=== PATIENT | female | born 1995 | race Caucasian/White ===

== ENCOUNTER 2020-11-09 04:32 | Inpatient (IN) ==
[2020-11-09] MEDS: RINGER'S SOLUTION,LACTATED 1,000 ML IV PRN ×2 (05:08→06:11)
[2020-11-09] MEDS ORDERED: ceFAZolin SODIUM 1 GM VIAL ONE (06:42)
--- NOTE | 2020-11-09 06:47 | ANES ---
Anesthesia Pre Procedure Eval HOME MEDICATIONS albuterol sulfate 90 mcg/actuation aerosol inhaler 2 inh IH Q6H PRN 06/26/20 [Last Taken Unknown] ipratropium 0.5 mg-albuterol 3 mg (2.5 mg base)/3 mL nebulization soln 3 ml IH Q6H PRN 06/26/20 [Last Taken Unknown] montelukast 10 mg tablet 10 mg PO DAILY 06/26/20 [Last Taken Unknown] [id number] 27 mg-folic acid 800 mcg-dha 200 mg-lut.oral pack 1 pkg PO ea 06/26/20 [Last Taken Unknown] aspirin 81 mg tablet,delayed release 81 mg PO DAILY 07/09/20 [Last Taken Unknown] Allergies/Adverse Reactions: Allergies Allergy/AdvReac Type Severity Reaction Status Date / Time No Known Allergies Allergy Verified 11/09/20 04:42 - Planned Procedure Planned Procedure: Repeat Section Medication List Reviewed:: Yes Allergies Verified: Yes Medical History (Last Reviewed 11/09/20 @ 06:46 by Brendan Damian CRNA) History of marijuana use (Chronic) Body mass index 36.0-36.9, adult (Chronic) Tobacco abuse (Chronic) 1/2 ppd Hx of migraines (Chronic) Depression (Chronic) Anxiety (Chronic) Influenza vaccination up to date Onset Date: ~09/03/20 09/03/20 snma Mid cycle pain Onset Date: ~05/2014 Migraine Pain in joint involving both pelvic regions and thighs Onset Date: ~03/2016 Acid reflux Onset Date: Unknown Asthma uses rescue inhaler often during the winter time. No hospitalizations due to asthma. 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 Onset Date: 2016 colposcopy w/ no bx LGSIL (low grade squamous intraepithelial dysplasia) Onset Date: ~08/08/17 Abnormal uterine bleeding Onset Date: ~05/2014 Surgical History (Last Reviewed 11/09/20 @ 06:46 by Brendan Damian CRNA) Previous section (Chronic) Previous section Onset Date: 03/22/18 History of colposcopy Onset Date: 2016 no bx d/t Family History (Last Reviewed 11/09/20 @ 06:46 by Brendan Damian CRNA) Mother CVA (cerebral vascular accident) COPD (chronic obstructive pulmonary disease) Father Alive and well Sister Asthma - Family Anesthesia History Family History:: no untoward family reactions to anesthesia, no familial bleeding tendencies, no family history of clotting disorders, no family history of premature - Airway/Neck/Teeth Within Normal Limits:: Yes Teeth Condition: intact Neck Exam: full range of motion Mallampatti Score: 2 Thyromental (T-M) distance: > 6 cm Mandibulo Hyoid distance: > 3 cm - Respiratory Respiratory History: asthma Respiratory Physical: lungs clear Smoking Status: Current every day smoker Sleep Apnea currently treated: No Sleep Apnea by current assessment: No - Cardiovascular Tolerate Activity: Fair Heart Sounds: S1 & S2, Regular - Gastrointestinal NPO since: 2400 - Anesthesia Assessment and Plan ASA Class: PS, II, E Anesthesia Type Plan: Block - Bilateral TAP block for post op pain relief, Spinal
[2020-11-09] MEDS ORDERED: BUPIVACAINE HCL/EPINEPHRINE 50 ML VIAL IJ ONE (06:48)
[2020-11-09 06:52] LABS: Cocaine Ur Negative (NEGATIVE); Urine Barbiturate Negative (NEGATIVE); Urine Benzodiazepines Negative (NEGATIVE); Urine Opiates Negative (NEGATIVE); Urine PCP Negative (NEGATIVE); Urine THC Negative (NEGATIVE)
[2020-11-09] MEDS ORDERED: Oxytocin/Ringers Lactate 20 UNITS/1,000 ML BAG IV ONE (08:23)
--- NOTE | 2020-11-09 09:09 | OR ---
Operative Report - Dictated Report Narrative: Date of delivery: 11/09/2020 Time of delivery: 08 Gender: male weight: 2763 grams APGARS:8/9 Preoperative diagnosis: IUP at 39w 2d, history of prior delivery Postoperative diagnosis: same Procedure: repeat delivery Surgeon: Dr. Neal Anesthesia: Spinal Anesthesiologist: Brendan Damian CRNA Description of the procedure: The patient was taken to the operating room where spinal anesthesia was given. She was then prepped and draped in the lithotomy position in the standard surgical fashion. Attention was then turned to the abdomen. A Pfannestiel skin incision was made. The incision was carried through the subcutaneous tissue. The fascia was incised in the midline. The fascial incision was extended sharply. The fascia was tented up with Gordon clamps and dissected off the underlying rectus muscles. The peritoneum was entered bluntly. A large Isac retractor was placed in the abdomen. The uterus was incised in a low transverse fashion. The uterine incision was extended bluntly. The membranes were ruptured and clear amniotic fluid was noted. The head was delivered. A loose nuchal cord was noted and it was reduced. The rest of the infant was delivered atramautically. The infant was handed off to the attending pediatric staff. The placenta was delivered by expression and appeared intact. The uterine incision was closed with 2 layers of 0-vicryl. The second layer was an imbricating layer. Additional hemostasis was obtained with 2 figure of eight sutures. Hemostasis was adequate. The subfacial layers and the rectus muscles were inspected for hemostasis. Hemostasis was adequate. The fascia was closed with 1-0 vicryl. The subcutaneous tissue was irrigated and made hemostatic. The skin was closed with 3-0 monocryl on a Raymond needle. [place] zhang was placed over the incision. The incision was covered with a dressing. All sponge, lap, and needle counts were correct. The patient tolerated the procedure well. She was transferred to the recovery room in stable condition. EBL: 600 mL Complications: none Specimens: cord blood
--- NOTE | 2020-11-09 09:10 | ANES ---
Post Anesthesia Discharge - Transfer of Care Transfer of Care handoff given to nurse: Yes - Discharge from PACU Discharge from PACU when meets criteria: Yes - Awake and comfortable.
--- NOTE | 2020-11-09 09:11 | ANES ---
Anesthesia Procedure Note Procedure Note: ANESTHESIA PROCEDURE NOTE Date of Procedure: 11/09/2020 Time of procedure: 8:55 AM. Performed by: CHARITY Cannon CRNA, MSN [place] Selector: Benita Huang RN. Preprocedure diagnosis: Post section pain. Post procedure diagnosis: Same. Procedure: Bilateral TAP block Indications: Post section pain relief. Findings: See below. Details of the procedure: The patient was brought to PACU and placed in the supine position. The patient was prepped with chlorhexidine and using ultrasound guidance the 3 abdominal muscular planes were identified and lidocaine 1% was infiltrated to the skin of the intended injection site. Under ultrasound guidance the the internal oblique and transverse this abdominis muscle layers were approached with visualization of a 4 inch block needle until the tip of the needle rested in the plane between the muscles. 25 mL bupivacaine 0.25% with 1-200,000 epinephrine was injected and the procedure was repeated on the other side. Please see radiology/ultrasound report for details and images of the procedure. EBL: 0 Fluids: N/A. Specimen: N/A. Post procedure condition: The patient tolerated the procedure well. No complications were noted. Thank you for this consultation. Brendan Damian CRNA, ARNP, MSN
--- NOTE | 2020-11-09 09:13 | ANES ---
Post Anesthesia Assessment - Vital Signs Vitals: Last Vital Signs Temp 37.4 C 11/09/20 08:55 Pulse 87 11/09/20 09:10 Resp 19 11/09/20 09:10 BP 127/44 11/09/20 09:10 Pulse Ox 99 11/09/20 09:10 Airway Patency: Normal - Mental Status Level Of Consciousness: Awake, Alert, Appropriate - Pain Level Pain Score: 0 - N/V Assessment Nausea/Vomiting Presence: None Dehydration:: No
[2020-11-09] MEDS ORDERED: SENNOSIDES 8.6 MG TABLET PO PRN (09:22)
[2020-11-09] MEDS ORDERED: diphenhydrAMINE HCL 25 MG CAPSULE PO PRN (09:22)
[2020-11-09] MEDS ORDERED: BISACODYL 10 MG SUPP.RECT RC PRN (09:22)
[2020-11-09] MEDS ORDERED: SIMETHICONE 80 MG TAB.CHEW PO PRN (09:22)
[2020-11-09] MEDS ORDERED: KETOROLAC TROMETHAMINE 30 MG/ML VIAL IV PRN (09:22)
[2020-11-09] MEDS ORDERED: ONDANSETRON HCL/PF 2 MG/ML VIAL IV PRN (09:22)
[2020-11-09] MEDS: HYDROcodone/ACETAMINOPHEN 1 EACH TABLET PO PRN ×3 (11:10→17:02)
[2020-11-09] MEDS ORDERED: ALBUTEROL SULFATE 2.5 MG/0.5 ML VIAL.NEB IH PRN (16:32)
[2020-11-09] MEDS: IBUPROFEN 800 MG TABLET PO PRN (17:02)
[2020-11-09] MEDS: DOCUSATE SODIUM 100 MG CAPSULE PO SCH (21:13)
[2020-11-10] MEDS: IBUPROFEN 800 MG TABLET PO PRN ×2 (05:26→11:27)
[2020-11-10] MEDS: HYDROcodone/ACETAMINOPHEN 1 EACH TABLET PO PRN ×2 (05:26→11:26)
[2020-11-10] MEDS ORDERED: ceFAZolin SODIUM 1 GM VIAL IV PRN (06:00)
[2020-11-10] MEDS: DOCUSATE SODIUM 100 MG CAPSULE PO SCH (08:29)
--- NOTE | 2020-11-10 08:31 | PN ---
Subjective - Date and Time Seen Date: 11/10/20 Time: 08:29 Subjective Narrative: Patient without complaints Objective Objective Narrative: See vital signs - Review of Systems Generalized/Overall Review: Reports: No Symptoms Reported Misc: All systems neg except as marked - Vitals Vitals: Last Vital Signs Temp 36.6 C 11/10/20 04:17 Pulse 75 11/10/20 04:17 Resp 16 11/10/20 04:17 BP 127/64 11/10/20 04:17 Pulse Ox 98 11/10/20 04:17 - Exam Constitutional: Present: Alert, Oriented x3, Cooperative, No distress ENT Exam: Present: hearing grossly normal Neck: Present: normal inspection Abdomen: Present: soft, nontender, nondistended - dressing c/d/i Extremity: Present: non-tender, no calf tenderness Skin Exam: Present: normal color, warm/dry, no cyanosis Neurologic: Present: alert, normal mood/affect, oriented x 3 Appearance: Present: appropriate appearance, appropriate insight, neat, no memory impairment Eye contact: Present: cooperative, good eye contact, normal speech Thoughts: Present: normal thought pattern Cauti Physician Documentation - Urinary Catheter Management Urethral (Diaz) Urethral Indwelling: No Date of Insertion: 11/09/20 Time of Insertion: 07:50 Date of Removal: 11/09/20 Time of Removal: 20:25 Assessment/Plan Plan Narrative: POD 1 s/p repeat delivery Doing well Patient considering discharge today since baby was transferred to [facility]
--- NOTE | 2020-11-10 08:33 | DS ---
OB Discharge Summary Delivery Date: 11/09/20 Delivery Time: 08:07 :: 2 Para:: 2 Gestational weeks:: 39 Gestational days:: 2 Intrapartum Procedures: Secondary Section, Delivery-Low Transverse, Anesthesia - Spinal Procedures: None /OP Complications: No Complications Discharge Diagnosis: Term -Delivered - Discharge Information Date of Discharge: 11/10/20 Hospital Course: The patient was admitted for a repeat delivery. course uncomplicated. Discharge Location: Home Disposition: Home self-care Condition: Good Activity on Discharge:: Activity as tolerated, Pelvic Rest Discharge Diet: General/regular food Prescriptions (Any new or edited meds): HYDROcodone/ACETAMINOPHEN [[place] 5-325] 1 ea PO Q6H PRN 6 Days #14 tab PRN Reason: Moderate Pain (Pain Scale 4-6) Transmission Status: Received by [facility] Complete Home Medications List: Complete Home Medication List: albuterol sulfate 90 mcg/actuation aerosol inhaler 2 inh IH Q6H PRN 06/26/20 montelukast 10 mg tablet 10 mg PO DAILY 06/26/20 [id number] 27 mg-folic acid 800 mcg-dha 200 mg-lut.oral pack 1 tab PO DAILY ea 06/26/20 HYDROcodone/ACETAMINOPHEN [[place]ora 5-325] 1 ea PO Q6H PRN 6 Days #14 tab 11/09/20 - Plan Discharge to:: Home Comment:: Routine Discharge Instructions Follow up in office in:: 2 weeks - Incision check with Dr. Eubanks - [place] Information Weight (Grams): 2,763 Infant Sex: Male Score 1 min: 8 Score 5 min: 9 Complications: Other Other Complications: respiratory distress with transfer to the [facility] [place]
[2020-11-10] MEDS ORDERED: MONTELUKAST SODIUM 10 MG TABLET PO SCH (09:00)
[2020-11-10 09:03] VITALS: BP 117/80
== END 2020-11-10 12:45 | disposition home or self-care (01) | DRG 787 ==
LOC: OB 04:32
PROVIDERS: ADMIT Obstetrics & Gynecology; ATTEND Obstetrics & Gynecology